=== PATIENT | male | born 1995 | race African-American/Black ===

== ENCOUNTER 2021-06-23 01:29 | Emergency (ER) | payer OTHER ==
[2021-06-23 01:49] LABS: BILIRUBIN,URINE NEGATIVE (NEGATIVE); GLUCOSE, URINE (UA) NEGATIVE (NEGATIVE); KETONES,URINE (UA) TRACE mg/dL (NEGATIVE); LEUKOCYTE ESTERASE, URINE NEGATIVE (NEGATIVE); NITRITE,URINE NEGATIVE (NEGATIVE); OCCULT BLOOD,URINE NEGATIVE (NEGATIVE); PROTEIN,URINE NEGATIVE (NEGATIVE); UROBILINOGEN,URINE 4 E.U./dL (NORMAL)
[2021-06-23 01:50] LABS: CLARITY,URINE CLEAR (CLEAR)
[2021-06-23 02:13] LABS: CREATININE 1.2 mg/dL (0.6-1.2); POTASSIUM 4.1 mmol/L (3.5-5.0)
[2021-06-23 02:14] LABS: BASOPHILS % (AUTO) 0.6 %; EOSINOPHILS # (AUTO) 0.1 10^3/uL (0.0-0.7); EOSINOPHILS % (AUTO) 1.8 %; HCT - HEMATOCRIT 46.5 % (42.0-52.0); HGB - HEMOGLOBIN 16.5 g/dL (14.0-18.0); LYMPHOCYTES # (AUTO) 2.6 10^3/uL (1.5-3.5); LYMPHOCYTES % (AUTO) 53.3 %; MEAN CORPUSCULAR HEMOGLOBIN 31.1 pg (27.0-31.0); MEAN CORPUSCULAR HGB CONC 35.5 g/dL (32.0-36.0); MEAN CORPUSCULAR VOLUME 87.7 fL (80.0-94.0); MEAN PLATELET VOLUME 10.2 fL (7.4-11.4); MONOCYTES # (AUTO) 0.3 10^3/uL (0.0-1.0); MONOCYTES % (AUTO) 6.9 %; NEUTROPHILS # (AUTO) 1.8 10^3/uL (1.5-6.6); NEUTROPHILS % (AUTO) 37.2 %; PLT - PLATELET COUNT 261 10^3/uL (130-450); RED CELL DISTRIBUTION WIDTH 12.3 % (12.0-15.0); WHITE BLOOD COUNT 4.9 x10^3/uL (4.8-10.8)
--- NOTE | 2021-06-23 02:16 | ED Physician Documentation ---
PD HPI MALE - Stated complaint Stated Complaint: MALE - Chief complaint Chief Complaint: Abd Pain - History of Present Illness Timing - duration: Hours (13) Timing - details: Gradual onset Associated symptoms: Testiclar pain. No: Dysuria PD HPI MALE CONTRIB FACTORS: Sexually active. 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 He awoke at 13:00 which is his usual timeTo wake up and noted discomfort in his right testicle that he rates a 2 out of 10. When he touches the area the pain is more intense at a 6 out of 10. He has not noticed any swelling or redness. He denies dysuria, frequency, urgency or known exposure to STDs.He denies trauma.As the pain did not improve through the afternoon and evening, patient presented to the emergency department for evaluation. Denies previous surgery.Denies fever, abdominal pain, nausea, vomiting, diarrhea. Other than palpation, nothing else makes the pain worse. Review of Systems Constitutional: denies: Fever Nose: denies: Rhinorrhea / runny nose Cardiac: denies: Chest pain / pressure Respiratory: denies: Dyspnea GI: denies: Abdominal Pain, Vomiting, Diarrhea : reports: Testicular pain. denies: Dysuria, Discharge, Testicular mass Skin: denies: Rash Neurologic: denies: Headache PD PAST MEDICAL HISTORY - Past Medical History Past Medical History: No - Past Surgical History Past Surgical History: No - Present Medications Home Medications: Ambulatory Orders Medication Instructions Recorded Confirmed No Known Home Medications 06/23/21 06/23/21 - Allergies Allergies/Adverse Reactions: Allergies Allergy/AdvReac Type Severity Reaction Status Date / Time No Known Drug Allergies Allergy Verified 06/23/21 01:37 - Social History Does the pt smoke?: No Smoking Status: Never smoker Does the pt drink ETOH?: Yes Does the pt have substance abuse?: No - Immunizations Immunizations are current?: Yes PD ED PE NORMAL - General General: Alert and oriented X 3, No acute distress, Well developed/nourished - HEENT HEENT: Atraumatic, Pharynx benign - Neck Neck: Supple, no meningeal sign - Cardiac Cardiac: RRR, No murmur - Respiratory Respiratory: No respiratory distress, Clear bilaterally - Abdomen Abdomen: Normal bowel sounds, Soft, Non tender, Non distended - Male Male : Tar Man present, Other - Derm Derm: Normal color - Extremities Extremities: No edema - Neuro Neuro: Normal speech - Psych Psych: Normal mood PD ED PE EXPANDED - Male Male : Testes descended jasbir, Normal lie/cremastaric, Tenderness (Mild tenderness near superior portion of Epididymis,No swelling or erythema), Tar Man present. No: Skin lesions, Discharge, Testicular Mass Results - Vitals Vitals: Vital Signs - 24 hr 06/23/21 06/23/21 06/23/21 01:34 03:34 04:04 Temperature 36.6 C 36.5 C Heart Rate 72 69 69 Respiratory 16 16 16 Rate Blood Pressure 147/90 H 140/85 H 140/85 H O2 Saturation 99 100 100 Oxygen O2 Source Room air - Labs Labs: Laboratory Tests 06/23/21 06/23/21 06/23/21 01:41 02:00 02:00 WBC 4.9 RBC 5.30 Hgb 16.5 Hct 46.5 MCV 87.7 MCH 31.1 H MCHC 35.5 RDW 12.3 Plt Count 261 MPV 10.2 Neut # (Auto) 1.8 Lymph # (Auto) 2.6 Mower # (Auto) 0.3 Eos # (Auto) 0.1 Baso # (Auto) 0.0 Absolute Nucleated RBC 0.00 Nucleated RBC % 0.0 Sodium 138 Potassium 4.1 Chloride 101 Carbon Dioxide 26 Anion Gap 11.0 BUN 15 Creatinine 1.2 Estimated GFR (MDRD) 89 Glucose 96 Calcium 9.0 Urine Color YELLOW Urine Clarity CLEAR Urine pH 7.0 Ur Specific Godwin 1.020 Urine Protein NEGATIVE Urine Glucose (UA) NEGATIVE Urine Ketones TRACE Urine Occult Blood NEGATIVE Urine Nitrite NEGATIVE Urine Bilirubin NEGATIVE Urine Urobilinogen 4 H Ur Leukocyte Esterase NEGATIVE Ur Microscopic Review NOT INDICATED Urine Culture Comments NOT INDICATED PD MEDICAL DECISION MAKING - ED course ED course: Patient presenting for evaluation of right testicle pain. On exam, he does not have significant tenderness To the majority of The right testicle. There is a small area where he does report having some discomfort. However he is overall very well-appearing. There is no significant tenderness, swelling, erythema, abnormal lie, or firmness to the testicle To suggest a torsion. Ultrasound was ordered to further evaluate the patient's pain. He additionally denies any UTI or STD symptoms. 0306 - Reviewed preliminary findings with the patient. He continues to deny significant pain and does not want any pain medications. I did review the finding of an epididymal cyst which could be the source of his pain and recommend anti-inflammatory medications. I also instructed that he should have follow-up with his PCM who may need to refer him to a urologist to have the cyst evaluated further, particularly if it continues to cause him pain.Ultrasound did demonstrate good arterial flow to bilateral testes and clinically I do not feel the patient has testicular torsion. Departure - Departure Disposition: 01 Home, Self Care Clinical Impression: Epididymal cyst Condition: Stable Instructions: Anatomy Reproductive Male Comments: You were evaluated today for pain in your right testicle.The ultrasound showed good blood flow to both of your testicles. I do not think you have a torsion or twisting of your testicle which would require emergent surgery.There was a small cyst (called an Epididymal cyst) seen in the right scrotum. This is a small fluid-filled sac. Most often they do not cause pain but if they are causing pain you can try an anti-inflammatory medication like Motrin or Tylenol to help. You should also follow-up with your regular [facility] doctor who may refer you to a urologist. Discharge Date/Time: 06/23/21 04:04
[2021-06-23 03:40] VITALS: BP 140/85
--- NOTE | 2021-06-23 08:01 | Ultrasound Report ---
PROCEDURE: Testicle w/Doppler INDICATIONS: R testicle pain since 1PM TECHNIQUE: Real-time scanning was performed of the scrotum and testicles, with image documentation. Color and p ulse Doppler interrogation was performed of both testicles. COMPARISON: None. FINDINGS: Right: Testicle is normal in size at 3.8 x 2.5 x 2.0 cm, and homogenous in echotexture. Epididymis is normal in overall size and morphology. Simple right hydrocele. No varicoceles. Overlying scrotal skin is normal in thickness. Incidental note of a 2 mm scrotal chidi. Incidental epididymal head cy st measuring up to 7 mm. Left: Testicle is normal in size at 4.0 x 3.2 x 2.2 cm, and homogeneous in echotexture. Epididymis is normal in overall size and morphology. No hydrocele or varicoceles. Overlying scrotal skin is no rmal in thickness. Doppler: Color and pulse Doppler demonstrate normal and symmetric arterial flow in both testicles. IMPRESSION: 1. Normal sonographic appearance of the bilateral testicles without evidence for testicular torsion. 2. Simple right epididymal head cyst. 3. Incidental note of small right hydrocele with 2 mm scrotal chidi. No significant discrepancy with initial interpretation by overnight radiologist. Reviewed by: Stephane Martinez MD on 06/23/2021 7:59 AM PST Approved by: Stephane Martinez MD on 06/23/2021 7:59 AM PST Station ID: [id number]
[2021-06-23 18:50] LABS: CHLAMYDIA TRACHOMATIS DNA NEGATIVE (NEGATIVE); NEISSERIA GONORRHOEAE DNA NEGATIVE (NEGATIVE)
== END 2021-06-23 04:04 | disposition home or self-care (01) ==
LOC: ED 01:29
DX: N50.3 Cyst of epididymis (principal)
CPT/HCPCS: 36415; 80048; 81001; 81003; 85025; 87086; 87491; 87591; 87661; 93975; 99284